=== PATIENT | female | born 1990 | race Caucasian/White ===

== ENCOUNTER 2022-01-08 09:41 | Emergency (ER) | payer SELFPAY ==
[2022-01-08 10:48] VITALS: BP 169/95
[2022-01-08 11:00] VITALS: BP 151/90
[2022-01-08] MEDS ORDERED: ONDANSETRON ODT8 MG PO (11:12)
[2022-01-08 11:29] LABS: HEMATOCRIT 40.2 % (37.0-47.0); HEMOGLOBIN 12.9 g/dl (12.0-16.0); IMMATURE GRANULOCYTES 0.2 % (0.0-5.0); MEAN CELL VOLUME 88.7 fL CALC (80.0-100.0); MEAN CORPUSCULAR HGB 28.5 pG CALC (26.0-32.0); MEAN CORPUSCULAR HGB CONC 32.1 g/dL CAL (32.0-36.0); NEUT# 3.22 thou/uL (2.00-7.15); RED BLOOD COUNT 4.53 mill/uL (4.20-5.60); RED CELL DISTRI WIDTH 12.6 % (11.5-15.5)
[2022-01-08 11:45] LABS: ALKALINE PHOSPHATASE 111 u/l (38-126); ANION GAP 10 (6-22 (CALC)); BILIRUBIN, TOTAL 0.4 mg/dL (0.0-1.4); BUN 10 mg/dL (7-17); BUN/CREATININE RATIO 17 (12-20 (CALC)); CARBON DIOXIDE 27 mmol/l (22-30); CHLORIDE 105 mmol/l (95-108); CREATININE 0.6 mg/dL (0.5-1.0); GFR FOR AFR.AMER. > 60 ML/MIN (>=60 (CALC)); GFR OTHER RACES > 60 ML/MIN (>=60 (CALC)); LIPASE 46 u/l (23-300); POTASSIUM 3.9 mmol/l (3.5-5.1); SGOT/AST 26 u/l (14-36); SODIUM 138 mmol/l (137-146); TOTAL PROTEIN 7.5 g/dL (6.3-8.2)
[2022-01-08 13:45] VITALS: BP 128/76
[2022-01-08 14:01] VITALS: BP 136/85
[2022-01-08 14:50] LABS: URINE BILIRUBIN - DIPSTICK NEGATIVE (NEGATIVE); URINE BLOOD DIPSTICK NEGATIVE (NEGATIVE); URINE COLOR YELLOW; URINE GLUCOSE - DIPSTICK NEGATIVE (NEGATIVE); URINE KETONE NEGATIVE (NEGATIVE); URINE LEUK ESTERASE NEGATIVE (NEGATIVE); URINE PROTEIN - DIPSTICK NEGATIVE (NEG-TRACE); URINE SPECIFIC GRAVITY <=1.005; URINE UROBILINOGEN - DIPSTICK 0.2 E.U./dL (0.2)
[2022-01-08 14:57] LABS: URINE NITRITE - DIPSTICK NEGATIVE (Negative)
[2022-01-08] MEDS ORDERED: CVS STOOL SOFTE PO (15:34)
[2022-01-08] MEDS ORDERED: ZOFRAN4 MG/TAB PO (15:34)
[2022-01-08 15:42] VITALS: BP 136/85
== END 2022-01-08 15:53 | disposition home or self-care (01) | DRG 392 ==
LOC: ED 09:41
PROVIDERS: Internal Medicine
DX: K59.00 Constipation, unspecified (principal); R16.0 Hepatomegaly, not elsewhere classified; M06.9 Rheumatoid arthritis, unspecified; Z98.84 Bariatric surgery status
CPT/HCPCS: Q9967; S0164

== ENCOUNTER 2022-02-01 11:07 | Emergency (ER) | payer SELFPAY ==
[~2022-02-01 11:07] MED LIST: CVS STOOL SOFTE PO; ONDANSETRON ODT8 MG PO; ZOFRAN4 MG/TAB PO
== END 2022-02-01 12:15 | disposition home or self-care (01) | DRG 951 ==
LOC: ED 11:07 → LWOBS 12:14
DX: Z53.21 Procedure and treatment not carried out due to patient leaving prior to being seen by health care provider (principal)